=== PATIENT | female | born 1950 | race Asian ===

== ENCOUNTER 2019-04-22 01:04 | Emergency (ER) | payer OTHER ==
[~2019-04-22] VITALS: Ht 149.9 cm; Wt 65.2 kg
[2019-04-22 01:06] VITALS: BP 144/75
[2019-04-22] MEDS ORDERED: DIPH,PERTUSS(ACELL),TET VAC/PF 0.5 ML IM-VACC ONE ×2 (01:30→01:49)
--- NOTE | 2019-04-22 02:05 | NUR ---
PT MEDICATED PER MAR
--- NOTE | 2019-04-22 02:41 | NUR ---
Patient/Caregiver given discharge instructions and they have confirmed that they understand the instructions. Patient ambulatory with steady gait.
== END 2019-04-22 02:42 | disposition home or self-care (01) ==
LOC: ED 02:30
DX: S00.01XA Abrasion of scalp, initial encounter (principal); S09.90XA Unspecified injury of head, initial encounter; I10 Essential (primary) hypertension; W01.0XXA Fall on same level from slipping, tripping and stumbling without subsequent striking against object, initial encounter; Y93.89 Activity, other specified; Y92.009 Unspecified place in unspecified non-institutional (private) residence as the place of occurrence of the external cause; Y99.8 Other external cause status
CPT/HCPCS: 70450; 90471; 90715